=== PATIENT | female | born 1935 | race Caucasian/White ===

== ENCOUNTER 2021-03-23 07:33 | Emergency (ER) | payer MEDICARE ==
[~2021-03-23] VITALS: Ht 162.6 cm; Wt 60.3 kg
[2021-03-23 07:35] VITALS: BP_SYST 192
[2021-03-23] MEDS ORDERED: ACET-2634 PO (08:17)
[2021-03-23] MEDS ORDERED: IBUP-2018 PO (08:17)
[2021-03-23 09:14] VITALS: BP_SYST 150
== END 2021-03-23 09:13 | disposition home or self-care (01) ==
LOC: SED 07:33
DX: S52.501A Unspecified fracture of the lower end of right radius, initial encounter for closed fracture (principal); S52.601A Unspecified fracture of lower end of right ulna, initial encounter for closed fracture; W01.0XXA Fall on same level from slipping, tripping and stumbling without subsequent striking against object, initial encounter; Y93.89 Activity, other specified; Y92.89 Other specified places as the place of occurrence of the external cause; Y99.8 Other external cause status
CPT/HCPCS: 99283